=== PATIENT | female | born 1940 | race Caucasian/White ===

== ENCOUNTER → 2023-09-14 09:30 | Outpatient (REF) | payer MEDICARE, OTHER, SELFPAY ==
[2023-09-14 10:19] LABS: Urine Albumin Negative (Neg - Trace); Urine Bilirubin Negative (Negative); Urine Character Clear (Clear); Urine Color Yellow; Urine Glucose Negative (Negative); Urine Ketone Negative (Negative); Urine Leukocyte Negative (Negative); Urine Nitrite Negative (Negative); Urine Occult Blood Negative (Negative); Urine Urobilinogen Negative (Neg - 1+)
== END ==
LOC: OLABN 09:30
PROVIDERS: ATTENDING PHYSICIAN Internal Medicine Geriatric Medicine
DX: R35.0 Frequency of micturition (principal)
CPT/HCPCS: 81003; 87086

== ENCOUNTER → 2023-09-21 11:06 | Outpatient (REF) | payer MEDICARE, OTHER, SELFPAY ==
[2023-09-21 12:18] LABS: Urine Albumin Negative (Neg - Trace); Urine Bilirubin Negative (Negative); Urine Character Clear (Clear); Urine Color Yellow; Urine Glucose Negative (Negative); Urine Ketone Negative (Negative); Urine Leukocyte 2+ (Negative); Urine Nitrite Negative (Negative); Urine Occult Blood Negative (Negative); Urine Urobilinogen Negative (Neg - 1+)
[2023-09-21 12:40] LABS: Urine Squamous Cell >30 /LPF (Few)
[2023-09-21 12:42] LABS: Urine Red Blood Cell 0-2 /HPF (0-2); Urine White Cell 30-40 /HPF (0-5)
[2023-09-21 12:43] LABS: Urine Bacteria Few (Negative)
== END ==
LOC: OLABN 11:06
PROVIDERS: ATTENDING PHYSICIAN Internal Medicine Geriatric Medicine
DX: R35.0 Frequency of micturition (principal)
CPT/HCPCS: 81003; 81015; 87077; 87086; 87186

== ENCOUNTER → 2023-10-08 09:32 | Outpatient (REF) | payer MEDICARE, OTHER, SELFPAY ==
[2023-10-08 12:50] LABS: Urine Albumin Negative (Neg - Trace); Urine Bilirubin Negative (Negative); Urine Character Clear (Clear); Urine Color Yellow; Urine Glucose Negative (Negative); Urine Ketone Negative (Negative); Urine Leukocyte Negative (Negative); Urine Nitrite Negative (Negative); Urine Occult Blood Negative (Negative); Urine Specific Gravity 1.015 (<1.030); Urine Urobilinogen Negative (Neg - 1+)
== END ==
LOC: OLABN 09:32
PROVIDERS: ATTENDING PHYSICIAN Internal Medicine Geriatric Medicine
DX: R30.0 Dysuria (principal)
CPT/HCPCS: 81003; 87086

== ENCOUNTER → 2023-10-10 12:16 | Outpatient (REF) | payer MEDICARE, OTHER, SELFPAY ==
[2023-10-10 13:03] LABS: % Basophils 0.9 % (0-2); % Eosinophils 3.9 % (0-6); % Immature Granulocytes 0.3 % (0-0.5); % Lymphocytes 43.2 % (20.5-51.1); % Monocytes 7.8 % (1.7-9.3); % Neutrophils 43.9 % (42.2-75.2); Absolute Eosinophils 0.1 10^3/uL (0-0.7); Absolute Lymphocytes 1.4 10^3/uL (1.2-3.4); Absolute Monocytes 0.3 10^3/uL (0.1-0.6); Absolute Neutrophils 1.5 10^3/uL (1.4-6.5); Hematocrit 34.5 % (37.0-47.0); Hemoglobin 11.3 g/dL (12.0-16.0); Mean Corp Hgb Conc. 32.8 g/dL (33.0-37.0); Mean Corpuscular Hgb 28.3 pg (27.0-31.0); Mean Corpuscular Volume 86.5 fL (81.0-99.0); Mean Platelet Volume 10.9 fL (7.4-10.4); Nucleated Red Blood Cells % 0 %; Platelet Count 143 10^3/uL (130-400); Red Blood Cell Count 3.99 10^6/uL (4.20-5.40); White Blood Cell Count 3.3 10^3/uL (4.8-10.8)
[2023-10-10 13:23] LABS: ALT (SGPT) < 10 U/L (0-35); AST (SGOT) 16 U/L (14-36); Alkaline Phosphatase 70 U/L (38-126); Blood Urea Nitrogen 16 mg/dl (7-17); Calcium 9.6 mg/dl (8.4-10.2); Carbon Dioxide 28 mmol/L (22-30); Chloride 102 mmol/L (98-107); Glucose 88 mg/dl (70-99); Sodium 138 mmol/L (135-145); Total Bilirubin 0.4 mg/dl (0.2-1.3); Total Protein 6.3 g/dl (6.3-8.2); eGFR > 60.00
== END ==
LOC: OLABN 12:16
PROVIDERS: ATTENDING PHYSICIAN Internal Medicine Geriatric Medicine
DX: F06.2 Psychotic disorder with delusions due to known physiological condition (principal); F41.9 Anxiety disorder, unspecified
CPT/HCPCS: 80053; 85025

== ENCOUNTER → 2023-10-11 09:35 | Outpatient (REF) | payer MEDICARE, OTHER, SELFPAY ==
[2023-10-11 11:13] LABS: Urine Albumin Negative (Neg - Trace); Urine Bilirubin Negative (Negative); Urine Character Clear (Clear); Urine Color Yellow; Urine Glucose Negative (Negative); Urine Ketone Negative (Negative); Urine Leukocyte Negative (Negative); Urine Nitrite Negative (Negative); Urine Occult Blood Negative (Negative); Urine Urobilinogen Negative (Neg - 1+)
== END ==
LOC: OLABN 09:35
PROVIDERS: ATTENDING PHYSICIAN Internal Medicine Geriatric Medicine
DX: R30.9 Painful micturition, unspecified (principal); R35.0 Frequency of micturition
CPT/HCPCS: 81003; 87086

== ENCOUNTER → 2023-10-29 14:32 | Outpatient (REF) | payer MEDICARE, OTHER, SELFPAY ==
[2023-10-29 15:07] LABS: Urine Albumin Negative (Neg - Trace); Urine Bilirubin Negative (Negative); Urine Character Clear (Clear); Urine Color Yellow; Urine Glucose Negative (Negative); Urine Ketone Trace (Negative); Urine Leukocyte Negative (Negative); Urine Nitrite Negative (Negative); Urine Occult Blood Negative (Negative); Urine Specific Gravity 1.015 (<1.030); Urine Urobilinogen Negative (Neg - 1+)
== END ==
LOC: OLAB 14:32
PROVIDERS: FAMILY PHYSICIAN Internal Medicine Geriatric Medicine
DX: R35.0 Frequency of micturition (principal)
CPT/HCPCS: 81003; 87086

== ENCOUNTER → 2023-11-28 09:53 | Outpatient (REF) | payer MEDICARE, OTHER, SELFPAY ==
[2023-11-28 10:29] LABS: Blood Urea Nitrogen 20 mg/dl (7-17); Calcium 9.4 mg/dl (8.4-10.2); Carbon Dioxide 26 mmol/L (22-30); Chloride 105 mmol/L (98-107); Glucose 102 mg/dl (70-99); Potassium 4.1 mmol/L (3.5-5.1); Sodium 139 mmol/L (135-145); eGFR > 60.00
[2023-11-28 10:45] LABS: Free T4 0.97 ng/dl (0.78-2.19); Vitamin D, 25-OH*** 37.2 ng/mL (30-80)
[2023-11-28 11:18] LABS: Vitamin B12 527 pg/ml (239-931)
[2023-11-28 11:24] LABS: TSH 3.36 uIU/ml (0.47-4.68)
[2023-11-28 12:11] LABS: Glycohemoglobin (HgbA1c) 6.9 % (4.0-5.6)
== END ==
LOC: OLABN 09:53
PROVIDERS: ATTENDING PHYSICIAN Internal Medicine Geriatric Medicine
DX: E03.9 Hypothyroidism, unspecified (principal); E78.5 Hyperlipidemia, unspecified; E53.8 Deficiency of other specified B group vitamins; E55.9 Vitamin D deficiency, unspecified; E11.9 Type 2 diabetes mellitus without complications
CPT/HCPCS: 36415; 80048; 82306; 82607; 83036; 84439; 84443

== ENCOUNTER → 2024-01-17 16:41 | Outpatient (REF) | payer MEDICARE, OTHER, SELFPAY ==
[2024-01-17 18:33] LABS: Urine Albumin Negative (Neg - Trace); Urine Bilirubin Negative (Negative); Urine Character Clear (Clear); Urine Color Yellow; Urine Glucose Negative (Negative); Urine Ketone Trace (Negative); Urine Leukocyte Negative (Negative); Urine Nitrite Negative (Negative); Urine Occult Blood Negative (Negative); Urine Urobilinogen Negative (Neg - 1+)
== END ==
LOC: OLABN 16:41
PROVIDERS: ATTENDING PHYSICIAN Internal Medicine Geriatric Medicine
DX: Z87.440 Personal history of urinary (tract) infections (principal); N39.0 Urinary tract infection, site not specified
CPT/HCPCS: 81003; 87077; 87086; 87186

== ENCOUNTER → 2024-02-27 12:35 | Outpatient (REF) | payer MEDICARE, OTHER, SELFPAY ==
[2024-02-27 13:33] LABS: Blood Urea Nitrogen 13 mg/dl (7-17); Calcium 9.3 mg/dl (8.4-10.2); Carbon Dioxide 27 mmol/L (22-30); Chloride 106 mmol/L (98-107); Glucose 95 mg/dl (70-99); Potassium 4.2 mmol/L (3.5-5.1); Sodium 136 mmol/L (135-145); eGFR > 60.00
[2024-02-27 13:53] LABS: Glycohemoglobin (HgbA1c) 6.7 % (4.0-5.6)
== END ==
LOC: OLABN 12:35
PROVIDERS: ATTENDING PHYSICIAN Internal Medicine Geriatric Medicine
DX: E55.9 Vitamin D deficiency, unspecified (principal); E11.9 Type 2 diabetes mellitus without complications; E78.5 Hyperlipidemia, unspecified; E53.8 Deficiency of other specified B group vitamins; E03.9 Hypothyroidism, unspecified; Z79.84 Long term (current) use of oral hypoglycemic drugs
CPT/HCPCS: 36415; 80048; 83036

== ENCOUNTER → 2024-04-11 15:30 | Outpatient (REF) | payer MEDICARE, OTHER, SELFPAY ==
[2024-04-11 17:38] LABS: Urine Albumin Negative (Neg - Trace); Urine Bilirubin Negative (Negative); Urine Character Clear (Clear); Urine Color Yellow; Urine Glucose Negative (Negative); Urine Ketone Negative (Negative); Urine Leukocyte Negative (Negative); Urine Nitrite Negative (Negative); Urine Occult Blood Negative (Negative); Urine Urobilinogen Negative (Neg - 1+)
== END ==
LOC: OLABN 15:30
PROVIDERS: ATTENDING PHYSICIAN Internal Medicine Geriatric Medicine
DX: R35.0 Frequency of micturition (principal)
CPT/HCPCS: 81003; 87077; 87086; 87186

== ENCOUNTER → 2024-04-17 18:42 | Outpatient (REF) | payer MEDICARE, OTHER, SELFPAY | LOC: OLABN 18:42 | PROVIDERS: ATTENDING PHYSICIAN Internal Medicine Geriatric Medicine | DX: C16.9 Malignant neoplasm of stomach, unspecified (principal); Z85.038 Personal history of other malignant neoplasm of large intestine; C16.8 Malignant neoplasm of overlapping sites of stomach | CPT/HCPCS: 82272 ==

== ENCOUNTER → 2024-04-19 10:12 | Outpatient (REF) | payer MEDICARE, OTHER, SELFPAY | LOC: OLABN 10:12 | PROVIDERS: ATTENDING PHYSICIAN Internal Medicine Geriatric Medicine | DX: C16.9 Malignant neoplasm of stomach, unspecified (principal); Z12.11 Encounter for screening for malignant neoplasm of colon; Z85.038 Personal history of other malignant neoplasm of large intestine | CPT/HCPCS: 82272 ==

== ENCOUNTER → 2024-04-23 16:00 | Outpatient (REF) | payer MEDICARE, OTHER, SELFPAY | LOC: OLABN 16:00 | PROVIDERS: ATTENDING PHYSICIAN Internal Medicine Geriatric Medicine | DX: Z12.11 Encounter for screening for malignant neoplasm of colon (principal) | CPT/HCPCS: 82270 ==

== ENCOUNTER 2024-05-21 07:49 | Emergency (ER) | payer MEDICARE, OTHER, SELFPAY ==
[2024-05-21] VITALS (9 sets, daily range): BP systolic 119–145; BP diastolic 61–89
[2024-05-21 08:20] LABS: % Basophils 0.7 % (0-2); % Eosinophils 4.5 % (0-6); % Immature Granulocytes 0.5 % (0-0.5); % Lymphocytes 27.9 % (20.5-51.1); % Monocytes 9.8 % (1.7-9.3); % Neutrophils 56.6 % (42.2-75.2); Absolute Eosinophils 0.2 10^3/uL (0-0.7); Absolute Lymphocytes 1.2 10^3/uL (1.2-3.4); Absolute Monocytes 0.4 10^3/uL (0.1-0.6); Absolute Neutrophils 2.5 10^3/uL (1.4-6.5); Hematocrit 33.8 % (37.0-47.0); Hemoglobin 11.1 g/dL (12.0-16.0); Mean Corp Hgb Conc. 32.8 g/dL (33.0-37.0); Mean Corpuscular Hgb 28.5 pg (27.0-31.0); Mean Corpuscular Volume 86.7 fL (81.0-99.0); Mean Platelet Volume 9.7 fL (7.4-10.4); Nucleated Red Blood Cells % 0 %; Platelet Count 172 10^3/uL (130-400); Red Cell Dist. Width 14.5 % (11.5-14.5); White Blood Cell Count 4.4 10^3/uL (4.8-10.8)
--- NOTE | 2024-05-21 08:26 | ED.GENMED ---
History of Present Illness
General
Chief Complaint: Chest Pain
Source: patient, records, long-term records, previous radiology exam and previous hospital records
Exam Limitations: none
Time Seen by Provider: 05/21/24 08:08
Nursing documentation reviewed up to this point in time: agreed with
History of Present Illness
History of Present Illness:
83-year-old female chronic pain syndrome on narcotic patches presents with chest pain back pain abdominal pain into her leg associated with trouble urinating sharp pain in her back,
No fevers no vomiting, she is unsure when the pain started,
Past History
Past History
ED Past Medical History: Arrthythmia (afib), CVA, GERD, HTN, Hypercholesterolemia, NIDDM, Hypothyroidism, Psychiatric (depression, anxiety) and Other (dizziness, constipation)
Patient has exhibited threatening behavior?: No
PSI?: No
Social History
Tobacco: Non-smoker
Alcohol: None
Drug: None
Living: long-term
Employment: Not employed
Review of Systems
Review of Systems
All Other Systems: Not applicable
Constitutional: Denies fever or fatigue
Respiratory: Denies trouble breathing
Cardiac: Reports chest pain
ABD/GI: Reports abdominal pain
: Reports frequency and urgency; Denies incontinence
Musculoskeletal: Reports joint pain and muscle stiffness
Phy Exam
Physical Exam
Physical Exam:
Physical Exam
General: Chronically ill female nontoxic
Neck: No jaundice
Heart: Irregular
Lungs: no acute respiratory distress. clear bilaterally
Abdomen: Soft nontender
Neuro: alert and oriented. no focal neurological deficits
Skin: no rash
Psychiatric: cooperative
Extremities: no edema.
Scores
Heart Score for Chest Pain Patients
STEMI patient?: No
History: Slightly or Non-Suspicious
ECG: Nonspecific Repolarization
Age: >/= 65 years
Risk Factors: 1 or 2 Risk Factors
Troponin: </= Normal Limit
Heart Score for Chest Pain Patients: 4
Heart Score Risk: 20.3% MACE over next 6 weeks
Course
Orders/Labs/Results
Orders:
Orders
05/21/24 07:52
Electrocardiogram (*1) Urgent
Reason for Study: Chest Pain
EKG- Treatment ONCE
05/21/24 08:05
Basic Metabolic Panel Urgent
Complete Blood Count/With Diff Urgent
Lipase Urgent
Comment: ADD ON
Troponin I Urgent
05/21/24 08:22
CT Abd/pel Without Iv Or Oral Urgent
Comment:
Reason For Exam: left flank pain, stones
Straight cath- Treatment ONCE
05/21/24 08:44
Urinalysis Reflex To Culture Urgent
Date Specimen was Collected: 05/21/24
Time Specimen was Collected: 08:42
05/21/24 08:45
Add On- LAB Urgent
Tests Added?: lipase
05/21/24 09:56
CR Chest - 2 Views Urgent
Comment:
Reason For Exam: cp
Abnormal Lab Results
05/21/24
08:05
WBC 4.4 L 10^3/uL
(4.8-10.8)
RBC 3.90 L 10^6/uL
(4.20-5.40)
Hgb 11.1 L g/dL
(12.0-16.0)
Hct 33.8 L %
(37.0-47.0)
MCHC 32.8 L g/dL
(33.0-37.0)
Monocytes % 9.8 H %
(1.7-9.3)
BUN 19 H mg/dl
(7-17)
Glucose 115 H mg/dl
(70-99)
05/21/24 08:05
05/21/24 08:05
Vital Signs
Initial and Last Documented VS:
Initial Vital Signs
BP Pulse Ox
119/69 97
05/21/24 07:52 05/21/24 07:52
Last Documented Vital Signs
Temp Pulse Resp BP Pulse Ox
98.4 F 66 20 137/65 96
05/21/24 07:53 05/21/24 10:30 05/21/24 10:30 05/21/24 10:57 05/21/24 10:57
MDM/Problems Addressed
Differential Diagnosis Includes:
Chronic pain renal colic UTI doubt PE as she is anticoagulated doubt ACS
Chronic conditions affecting care: HTN, Neurological disorder, Kidney disease and Other (Chronic pain)
Acute Exacerbation and/or Progression of Chronic Illness: HTN, Neurological disorder, Kidney disease and Other (Chronic pain)
*Radiology
Radiology exam reviewed: radiology read reviewed
*Pulse Oximetry
Patient hypoxic: no
*EKG
Interpreted by ED Provider?: Yes
Interpretation: abnormal
Comparison EKG: changes noted
Heart Rate: 78
Rate: normal
Rhythm: a-fib
Ischemia: non-specific ST changes
*[employer]ishing [employer]visor Interpretation
Rate: normal
Interpretation: normal
Heart Rate: 75
Rhythm: a-fib
*Critical Care Note
Total Time (30-74mins, 75-104mins- exclusive of procedures): Not Applicable
Data Reviewed
Review of Other/Old Records Reveals: Labs, Records and Radiology Studies
Source: patient
Update Note
Update Note:
Update, symptoms appear chronic, EKG noted, possibly A-fib she is anticoagulated already, does have pain into her flank and dysuria prior records reviewed has had a kidney stone will ask nurse to get a straight cath UA chest stone search CT
11 AM chest x-ray report noted CT report noted labs are noted troponin noted stable from prior levels, urine noted
ED Attending Note
-
Portions of this chart may have been created with voice recognition software.� Occasional wrong word or��sound alike� substitutions may have occurred due to the inherent limitations of voice recognition software.
Discharge Plan
Departure
Patient Disposition: Home (Routine Discharge)
Date of Disposition: 05/21/24
Time of Disposition: 11:03
Patient with high blood pressure during this ER visit?: No
Condition: Good
Discharge Problem:
Pain
Instructions: Chest Pain PCP Follow Up
Prescriptions:
No Action
losartan 25 MG tablet
25 mg PO DAILY
tramadol 50 MG tablet
25 mg PO Q12H PRN (Reason: moderate pain)
Rx Instructions:
05/21/24: filled #30 on 10/16/23 at [facility]
acetaminophen 325 mg Tablet
325 mg PO DAILY PRN (Reason: mild pain/fever>100.4)
Rx Instructions:
not to exceed 3000mg/24h
lidocaine 4 % adhesive patch,medicated
1 patch TOPICAL SUMOTUTHFR
Rx Instructions:
APPLY 11-7 SHIFT; REMOVE 3-11 SHIFT
sennosides-docusate sodium [Senna-S] 8.6-50 mg Tablet
2 tab PO BID
levothyroxine 88 mcg Tablet
88 mcg PO DAILY@0630
cyanocobalamin (vitamin B-12) [Vitamin B-12] 500 mcg Tablet
250 mcg PO MOWEFR
diltiazem HCl 120 mg capsule,extended release 24 hr
120 mg PO DAILY
metformin 500 mg tablet extended release 24 hr
500 mg PO QPM
duloxetine 30 mg Capsule,Delayed Release(Dr/Ec)
30 mg PO DAILY
buprenorphine 5 mcg/hour Patch Weekly
1 patch TRANSDERMAL TH
Patient Comments:
05/21/24: filled #4 patches/28 days on 05/17/24 - [facility]
apixaban 2.5 mg Tablet
2.5 mg PO BID
naloxone [Narcan] 4 mg/actuation [place],Non-Aerosol
4 mg INTRANASAL PRN PRN (Reason: opioid overdose)
Rx Instructions:
may repeat dose x1 in 2-3 minutes if pt does not respond or until EMS arrives
acetaminophen [Tylenol 8 Hour] 650 mg Tablet Extended Release
1,300 mg PO BID
methenamine hippurate 1 gram Tablet
1 g PO TUFR
magnesium hydroxide [Milk of Magnesia] 400 mg/5 mL Suspension
30 ml PO HSPRN PRN (Reason: constipation)
bisacodyl 10 mg Suppository
10 mg [place] DAILY PRN (Reason: q 3 days when no BM and MOM/lactulose ineffective)
estradiol 0.01 % (0.1 mg/gram) Cream
1 g VAGINAL MOTH
Preparation H Cream
1 applic topical TIDPRN PRN (Reason: hemorrhoids)
Rx Instructions:
apply topically to external hemorrhoids after each BM
cranberry extract [Ellura] 200 mg Capsule
200 mg PO QPM
cholecalciferol (vitamin D3) 1,250 mcg (50,000 unit) Tablet
1,250 mcg PO QMONTH
Rx Instructions:
05/21/24: Monday of every month.
lidocaine 4 % Adhesive Patch,Medicated
1 patch TOPICAL WESA
Rx Instructions:
APPLY 7-3 SHIFT; REMOVE 3-11 SHIFT
atorvastatin 10 mg tablet
10 mg PO HS
gabapentin 100 mg capsule
100 mg PO DAILY
melatonin 3 mg Tablet
3 mg PO HS
omeprazole 10 mg capsule,delayed release(DR/EC)
10 mg PO DAILY
docusate sodium 100 mg Capsule
200 mg PO QPM
gabapentin 300 mg capsule
300 mg PO QPM
quetiapine 25 mg tablet
12.5 mg PO HS
lidocaine 4 % Adhesive Patch,Medicated
1 patch TOPICAL DAILY PRN (Reason: right lower back)
Rx Instructions:
on in AM; remove in PM
witch ekaterina 50 % Pads, Medicated
1 pad TOPICAL BID PRN (Reason: hemorrhoidal pain)
Rx Instructions:
apply topically to rectum
glucagon HCl [Glucagon (HCl) Emergency Kit] 1 mg Recon Soln
1 mg IM TIDPRN PRN (Reason: symptomatic hypoglycemia)
Rx Instructions:
Inject 1mg IM prn symptomatic hypoglycemia. may repeat in 15min x 2 doses if still symptomatic.
Referrals:
UNKNOWN,NO INTERVIEW [Family Provider] -
Denilson Weems MD [Active] - Next open appointment
Interventions
Interventions:
*Risk Screen - Suicide Last Done: 05/21/24 07:53
*General Assessment Last Done: 05/21/24 07:53
*Neglect/Abuse Screening Last Done: 05/21/24 07:53
*ED COVID-19 Vaccine History Last Done: 05/21/24 07:53
ED- Cardiac Assessment Last Done: 05/21/24 08:03
Discharge Date and Time
Print Language: SAMI
[2024-05-21 08:42] LABS: Blood Urea Nitrogen 19 mg/dl (7-17); Calcium 9.4 mg/dl (8.4-10.2); Carbon Dioxide 26 mmol/L (22-30); Chloride 104 mmol/L (98-107); Glucose 115 mg/dl (70-99); Sodium 140 mmol/L (135-145); eGFR > 60.00
[2024-05-21 08:56] LABS: Urine Albumin Negative (Neg - Trace); Urine Bilirubin Negative (Negative); Urine Character Clear (Clear); Urine Color Yellow; Urine Glucose Negative (Negative); Urine Ketone Negative (Negative); Urine Leukocyte Negative (Negative); Urine Nitrite Negative (Negative); Urine Occult Blood Negative (Negative); Urine Specific Gravity 1.015 (<1.030); Urine Urobilinogen Negative (Neg - 1+)
[2024-05-21 09:06] LABS: Lipase 47 U/L (23-300)
== END 2024-05-21 13:45 | disposition home or self-care (01) ==
LOC: EMR 07:49
PROVIDERS: EMERGENCY PHYSICIAN Emergency Medicine
DX: R07.89 Other chest pain (principal); M54.9 Dorsalgia, unspecified; R10.9 Unspecified abdominal pain
CPT/HCPCS: 99285; 71046; 74176; 80048; 81003; 83690; 84484; 85025; 93005

== ENCOUNTER → 2024-05-28 10:28 | Outpatient (REF) | payer MEDICARE, OTHER, SELFPAY ==
[2024-05-28 11:18] LABS: Glycohemoglobin (HgbA1c) 6.7 % (4.0-5.6)
[2024-05-28 11:22] LABS: Free T4 1.11 ng/dl (0.78-2.19)
[2024-05-28 11:36] LABS: TSH 8.73 uIU/ml (0.47-4.68)
[2024-05-28 11:53] LABS: Calcium 9.3 mg/dl (8.4-10.2); Chloride 104 mmol/L (98-107); Glucose 100 mg/dl (70-99); HDL Cholesterol 46 mg/dl; Potassium 4.1 mmol/L (3.5-5.1); Sodium 140 mmol/L (135-145); Triglyceride 155 mg/dl (10-149); Very Low Density Lipoprotein 31 mg/dl (0-30)
[2024-05-28 12:13] LABS: Blood Urea Nitrogen 15 mg/dl (7-17); Carbon Dioxide 22 mmol/L (22-30); LDL Cholesterol, Calculated 100 mg/dl; Total Cholesterol 177 mg/dl (50-199); eGFR > 60.00
== END ==
LOC: OLABN 10:28
PROVIDERS: ATTENDING PHYSICIAN Internal Medicine Geriatric Medicine
DX: E78.5 Hyperlipidemia, unspecified (principal); Z79.84 Long term (current) use of oral hypoglycemic drugs; E03.9 Hypothyroidism, unspecified
CPT/HCPCS: 36415; 80048; 80061; 83036; 84439; 84443

== ENCOUNTER → 2024-05-30 10:20 | Outpatient (REF) | payer MEDICARE, OTHER, SELFPAY ==
[2024-05-30 12:05] LABS: TSH 7.07 uIU/ml (0.47-4.68)
== END ==
LOC: OLABN 10:20
PROVIDERS: ATTENDING PHYSICIAN Internal Medicine Geriatric Medicine
DX: E03.9 Hypothyroidism, unspecified (principal)
CPT/HCPCS: 36415; 84443

== ENCOUNTER → 2024-07-05 16:42 | Outpatient (REF) | payer MEDICARE, OTHER, SELFPAY ==
[2024-07-05 17:44] LABS: Urine Albumin Negative (Neg - Trace); Urine Bilirubin Negative (Negative); Urine Character Clear (Clear); Urine Color Yellow; Urine Glucose Negative (Negative); Urine Ketone Negative (Negative); Urine Leukocyte Negative (Negative); Urine Nitrite Negative (Negative); Urine Occult Blood Negative (Negative); Urine Specific Gravity 1.015 (<1.030); Urine Urobilinogen Negative (Neg - 1+)
== END ==
LOC: OLABN 16:42
PROVIDERS: ATTENDING PHYSICIAN Internal Medicine Geriatric Medicine
DX: R35.0 Frequency of micturition (principal)
CPT/HCPCS: 81003; 87086

== ENCOUNTER → 2024-07-12 23:40 | Outpatient (REF) | payer MEDICARE, OTHER, SELFPAY ==
[2024-07-13 08:48] LABS: Urine Albumin Trace (Neg - Trace); Urine Bilirubin Negative (Negative); Urine Character Clear (Clear); Urine Color Yellow; Urine Glucose Negative (Negative); Urine Ketone Trace (Negative); Urine Leukocyte Negative (Negative); Urine Nitrite Negative (Negative); Urine Occult Blood Negative (Negative); Urine Specific Gravity 1.025 (<1.030); Urine Urobilinogen Negative (Neg - 1+)
== END ==
LOC: OLABN 23:40
PROVIDERS: ATTENDING PHYSICIAN Internal Medicine Geriatric Medicine
DX: R35.0 Frequency of micturition (principal)
CPT/HCPCS: 81003; 87086

== ENCOUNTER → 2024-08-27 08:37 | Outpatient (REF) | payer MEDICARE, OTHER, SELFPAY ==
[2024-08-27 10:34] LABS: Glycohemoglobin (HgbA1c) 6.7 % (4.0-5.6)
[2024-08-27 10:55] LABS: ALT (SGPT) 10 U/L (0-35); AST (SGOT) 19 U/L (14-36); Albumin 3.5 g/dl (3.5-5.0); Alkaline Phosphatase 59 U/L (38-126); Blood Urea Nitrogen 20 mg/dl (7-17); Calcium 9.1 mg/dl (8.4-10.2); Carbon Dioxide 26 mmol/L (22-30); Chloride 103 mmol/L (98-107); Direct Bilirubin 0.2 mg/dl (0.0-0.4); Glucose 109 mg/dl (70-99); Potassium 4.4 mmol/L (3.5-5.1); Sodium 137 mmol/L (135-145); Total Bilirubin 0.4 mg/dl (0.2-1.3); Total Cholesterol 157 mg/dl (50-199); Triglyceride 164 mg/dl (10-149); Very Low Density Lipoprotein 32 mg/dl (0-30); eGFR > 60.00
[2024-08-27 15:32] LABS: HDL Cholesterol 48 mg/dl; LDL Cholesterol, Calculated 77 mg/dl
== END ==
LOC: OLABN 08:37
PROVIDERS: ATTENDING PHYSICIAN Internal Medicine Geriatric Medicine
DX: E78.5 Hyperlipidemia, unspecified (principal); Z79.84 Long term (current) use of oral hypoglycemic drugs
CPT/HCPCS: 36415; 80053; 80061; 82248; 83036

== ENCOUNTER → 2024-08-28 10:55 | Outpatient (REF) | payer MEDICARE, OTHER, SELFPAY ==
[2024-08-28 12:48] LABS: TSH 3.57 uIU/ml (0.47-4.68)
== END ==
LOC: OLABN 10:55
PROVIDERS: ATTENDING PHYSICIAN Internal Medicine Geriatric Medicine
DX: E03.9 Hypothyroidism, unspecified (principal)
CPT/HCPCS: 36415; 84443

== ENCOUNTER → 2024-10-04 21:00 | Outpatient (REF) | payer MEDICARE, OTHER, SELFPAY ==
[2024-10-05 10:11] LABS: Urine Albumin 2+ (Neg - Trace); Urine Bilirubin Negative (Negative); Urine Character Clear (Clear); Urine Color Yellow; Urine Glucose Negative (Negative); Urine Ketone Negative (Negative); Urine Leukocyte Negative (Negative); Urine Nitrite Negative (Negative); Urine Occult Blood Negative (Negative); Urine Urobilinogen Negative (Neg - 1+)
[2024-10-05 10:27] LABS: Urine Bacteria Few (Negative); Urine Red Blood Cell 0-2 /HPF (0-2); Urine Squamous Cell 16-20 /LPF (Few)
== END ==
LOC: OLABN 21:00
PROVIDERS: ATTENDING PHYSICIAN Internal Medicine Geriatric Medicine
DX: R30.9 Painful micturition, unspecified (principal); R35.0 Frequency of micturition; N39.0 Urinary tract infection, site not specified
CPT/HCPCS: 81003; 81015; 87086

== ENCOUNTER → 2024-10-15 11:52 | Outpatient (REF) | payer MEDICARE, OTHER, SELFPAY ==
[2024-10-15 12:23] LABS: Hematocrit 39.7 % (37.0-47.0); Hemoglobin 12.7 g/dL (12.0-16.0); Mean Corpuscular Hgb 29.5 pg (27.0-31.0); Mean Corpuscular Volume 92.1 fL (81.0-99.0); Mean Platelet Volume 10.7 fL (7.4-10.4); Platelet Count 149 10^3/uL (130-400); Red Blood Cell Count 4.31 10^6/uL (4.20-5.40); Red Cell Dist. Width 14.6 % (11.5-14.5)
[2024-10-15 12:33] LABS: ALT (SGPT) 12 U/L (0-35); AST (SGOT) 18 U/L (14-36); Albumin 3.8 g/dl (3.5-5.0); Alkaline Phosphatase 61 U/L (38-126); Blood Urea Nitrogen 24 mg/dl (7-17); Calcium 9.5 mg/dl (8.4-10.2); Carbon Dioxide 27 mmol/L (22-30); Chloride 107 mmol/L (98-107); Glucose 103 mg/dl (70-99); HDL Cholesterol 49 mg/dl; LDL Cholesterol, Calculated 87 mg/dl; Potassium 4.3 mmol/L (3.5-5.1); Sodium 141 mmol/L (135-145); Total Bilirubin 0.5 mg/dl (0.2-1.3); Total Cholesterol 172 mg/dl (50-199); Total Protein 6.4 g/dl (6.3-8.2); Triglyceride 180 mg/dl (10-149); Very Low Density Lipoprotein 36 mg/dl (0-30); eGFR > 60.00
[2024-10-16 10:13] LABS: Glycohemoglobin (HgbA1c) 6.7 % (4.0-5.6)
== END ==
LOC: OLABN 11:52
PROVIDERS: ATTENDING PHYSICIAN Internal Medicine Geriatric Medicine
DX: I10 Essential (primary) hypertension (principal); Z79.84 Long term (current) use of oral hypoglycemic drugs
CPT/HCPCS: 36415; 80053; 80061; 83036; 85027

== ENCOUNTER → 2024-11-04 11:18 | Outpatient (REF) | payer MEDICARE, OTHER, SELFPAY ==
[2024-11-04 12:30] LABS: Procalcitonin < 0.05 ng/ml (0.0-0.25)
[2024-11-04 12:31] LABS: % Basophils 0.8 % (0-2); % Immature Granulocytes 0.3 % (0-0.5); % Lymphocytes 31.4 % (20.5-51.1); % Monocytes 8.2 % (1.7-9.3); % Neutrophils 56.3 % (42.2-75.2); Absolute Basophils 0.1 10^3/uL (0-0.2); Absolute Eosinophils 0.2 10^3/uL (0-0.7); Absolute Lymphocytes 1.9 10^3/uL (1.2-3.4); Absolute Monocytes 0.5 10^3/uL (0.1-0.6); Absolute Neutrophils 3.4 10^3/uL (1.4-6.5); Hematocrit 39.6 % (37.0-47.0); Hemoglobin 12.8 g/dL (12.0-16.0); Mean Corp Hgb Conc. 32.3 g/dL (33.0-37.0); Mean Corpuscular Hgb 30.5 pg (27.0-31.0); Mean Corpuscular Volume 94.5 fL (81.0-99.0); Mean Platelet Volume 10.2 fL (7.4-10.4); Nucleated Red Blood Cells % 0 %; Platelet Count 156 10^3/uL (130-400); Red Blood Cell Count 4.19 10^6/uL (4.20-5.40); Red Cell Dist. Width 14.5 % (11.5-14.5); White Blood Cell Count 6.1 10^3/uL (4.8-10.8)
[2024-11-04 12:44] LABS: ALT (SGPT) 11 U/L (0-35); AST (SGOT) 18 U/L (14-36); Alkaline Phosphatase 65 U/L (38-126); Blood Urea Nitrogen 20 mg/dl (7-17); Calcium 9.4 mg/dl (8.4-10.2); Carbon Dioxide 23 mmol/L (22-30); Chloride 108 mmol/L (98-107); Glucose 104 mg/dl (70-99); Sodium 142 mmol/L (135-145); Total Bilirubin 0.6 mg/dl (0.2-1.3); Total Protein 6.6 g/dl (6.3-8.2); eGFR > 60.00
[2024-11-04 12:51] LABS: NT-proBNP 1760 pg/ml
== END ==
LOC: OLABN 11:18
PROVIDERS: ATTENDING PHYSICIAN Internal Medicine Geriatric Medicine
DX: R06.89 Other abnormalities of breathing (principal); R09.89 Other specified symptoms and signs involving the circulatory and respiratory systems
CPT/HCPCS: 36415; 80053; 83880; 84145; 85025

== ENCOUNTER → 2024-12-30 10:15 | Outpatient (REF) | payer MEDICARE, OTHER, SELFPAY | LOC: RST 10:15 | PROVIDERS: ATTENDING PHYSICIAN Internal Medicine Geriatric Medicine | DX: R13.13 Dysphagia, pharyngeal phase (principal); R13.10 Dysphagia, unspecified; T17.908A Unspecified foreign body in respiratory tract, part unspecified causing other injury, initial encounter | CPT/HCPCS: 74230; 92611 ==

== ENCOUNTER → 2025-01-29 12:40 | Outpatient (REF) | payer MEDICARE, OTHER, SELFPAY ==
[2025-01-30 14:22] LABS: Urine Character Slightly Cloudy (Clear)
[2025-01-30 14:35] LABS: Urine Squamous Cell 26-30 /LPF (Few); Urine White Cell 0-2 /HPF (0-5)
== END ==
LOC: OLABN 12:40
PROVIDERS: ATTENDING PHYSICIAN Internal Medicine Geriatric Medicine
DX: R35.0 Frequency of micturition (principal)
CPT/HCPCS: 81003; 81015; 87086

== ENCOUNTER → 2025-01-31 22:00 | Outpatient (REF) | payer MEDICARE, OTHER, SELFPAY ==
[2025-02-01 09:59] LABS: Urine Character Clear (Clear)
[2025-02-01 10:20] LABS: Urine Red Blood Cell 0-2 /HPF (0-2)
== END ==
LOC: OLABN 22:00
PROVIDERS: ATTENDING PHYSICIAN Internal Medicine Geriatric Medicine
DX: R35.0 Frequency of micturition (principal)
CPT/HCPCS: 81003; 81015; 87086

== ENCOUNTER → 2025-02-25 10:59 | Outpatient (REF) | payer MEDICARE, OTHER, SELFPAY ==
[2025-02-25 12:05] LABS: Blood Urea Nitrogen 10 mg/dl (7-17); Calcium 9.1 mg/dl (8.4-10.2); Carbon Dioxide 26 mmol/L (22-30); Chloride 107 mmol/L (98-107); Glucose 86 mg/dl (70-99); Potassium 4.3 mmol/L (3.5-5.1); Sodium 140 mmol/L (135-145); eGFR > 60.00
[2025-02-25 12:53] LABS: Vitamin B12 696 pg/ml (239-931)
[2025-02-25 14:21] LABS: Glycohemoglobin (HgbA1c) 6.4 % (4.0-5.6)
== END ==
LOC: OLABN 10:59
PROVIDERS: ATTENDING PHYSICIAN Internal Medicine Geriatric Medicine
DX: D51.9 Vitamin B12 deficiency anemia, unspecified (principal); Z79.84 Long term (current) use of oral hypoglycemic drugs; E11.9 Type 2 diabetes mellitus without complications
CPT/HCPCS: 36415; 80048; 82607; 83036

== ENCOUNTER → 2025-03-14 18:30 | Outpatient (REF) | payer MEDICARE, OTHER, SELFPAY ==
[2025-03-15 13:05] LABS: Urine Character Clear (Clear)
[2025-03-15 13:20] LABS: Urine Red Blood Cell 0-2 /HPF (0-2); Urine Squamous Cell >30 /LPF (Few); Urine White Cell 0-2 /HPF (0-5)
== END ==
LOC: OLABN 18:30
PROVIDERS: ATTENDING PHYSICIAN Internal Medicine Geriatric Medicine
DX: R53.1 Weakness (principal)
CPT/HCPCS: 81003; 81015; 87086

== ENCOUNTER → 2025-03-18 11:13 | Outpatient (REF) | payer MEDICARE, OTHER, SELFPAY ==
[2025-03-18 11:32] LABS: Urine Character Clear (Clear)
[2025-03-18 11:38] LABS: Urine Red Blood Cell 0-2 /HPF (0-2); Urine White Cell 0-2 /HPF (0-5)
== END ==
LOC: OLABN 11:13
PROVIDERS: ATTENDING PHYSICIAN Internal Medicine Geriatric Medicine
DX: R30.0 Dysuria (principal)
CPT/HCPCS: 36415; 81003; 81015; 87086

== ENCOUNTER 2025-04-30 08:32 | Emergency (ER) | payer MEDICARE, OTHER, SELFPAY ==
[2025-04-30] VITALS (7 sets, daily range): BP systolic 118–136; BP diastolic 67–92
--- NOTE | 2025-04-30 08:52 | ED.GENMED ---
History of Present Illness
General
Chief Complaint: Chest Pain
Time Seen by Provider: 04/30/25 08:37
History of Present Illness
History of Present Illness:
84-year-old female with history of dementia presents to the emergency department ostensibly for chest pain but also reports pain to numerous other areas of her body. She apparently got a flu shot this morning and began complaining of chest pain at
her nursing facility. On my line of questioning she indicates pain to the head, neck, back, chest, abdomen, and left leg as well as left arm. She is noted to be moving all extremities. She is pleasantly confused at baseline
Past History
Past History
ED Past Medical History: Arrthythmia (afib), CVA, GERD, HTN, Hypercholesterolemia, NIDDM, Hypothyroidism, Psychiatric (depression, anxiety) and Other (dizziness, constipation)
Patient has exhibited threatening behavior?: No
PSI?: No
Social History
Tobacco: Non-smoker
Alcohol: None
Drug: None
Living: [facility]
Employment: Not employed
Review of Systems
Review of Systems
Allergies reviewed?: Yes
All Other Systems: ROS reviewed and negative except as documented in HPI and ROS
Phy Exam
Physical Exam
Physical Exam:
GEN: Well appearing, NAD, WDWN
HEENT: Oral mucosa moist, no scleral icterus
Cardiac: Regular rate and rhythm, no murmurs
Lung: No respiratory distress, no tachypnea, lungs clear to auscultation bilaterally
MSK: No gross deformity or injuries
Skin: Good color, no pallor or jaundice, no rashes
Neuro: Alert, answers questions, pleasantly confused, moves all extremities
Psych: Calm, cooperative
Scores
Heart Score for Chest Pain Patients
STEMI patient?: No
History: Slightly or Non-Suspicious
ECG: Normal
Age: >/= 65 years
Risk Factors: >/= 3 Risk Factors or History of CAD
Troponin: >1 - <3 x Normal Limit
Heart Score for Chest Pain Patients: 5
Heart Score Risk: 20.3% MACE over next 6 weeks
Course
Orders/Labs/Results
Orders:
Orders
04/30/25 08:34
EKG [Electrocardiogram (*1)] Urgent
Reason for Study: Chest Pain
04/30/25 08:35
EKG- Treatment ONCE
04/30/25 08:42
CR Chest Portable - 1 View Urgent
Comment:
Reason For Exam: chest pain
Reason Study Needs to be Portable: Other
04/30/25 08:50
CMP [Comprehensive Metabolic Panel] Urgent
Complete Blood Count/With Diff Urgent
Troponin I Urgent
04/30/25 10:10
EKG- Treatment ONCE
04/30/25 11:50
EKG [Electrocardiogram (*1)] Routine
Reason for Study: Chest Pain
04/30/25 12:02
Troponin I Routine
04/30/25 12:47
Acetaminophen [Tylenol] 650 mg PO NOW STA
Abnormal Lab Results
04/30/25 04/30/25
08:50 12:02
RBC 3.94 L 10^6/uL
(4.20-5.40)
MCHC 32.8 L g/dL
(33.0-37.0)
Plt Count 116 L 10^3/uL
(130-400)
MPV 10.7 H fL
(7.4-10.4)
Absolute Lymphs (auto) 1.1 L 10^3/uL
(1.2-3.4)
Monocytes % 10.4 H %
(1.7-9.3)
Troponin I 0.036 H* ng/ml 0.036 H* ng/ml
04/30/25 08:50
04/30/25 08:50
Vital Signs
Initial and Last Documented VS:
Initial Vital Signs
Temp Pulse Resp BP Pulse Ox
98.1 F 67 18 121/69 95
04/30/25 08:35 04/30/25 08:35 04/30/25 08:35 04/30/25 08:35 04/30/25 08:35
Last Documented Vital Signs
Temp Pulse Resp BP Pulse Ox
98.1 F 71 17 128/67 98
04/30/25 08:35 04/30/25 11:45 04/30/25 11:45 04/30/25 11:00 04/30/25 11:15
MDM/Problems Addressed
MDM/Problems Addressed:
Patient's symptoms are most likely inflammatory myalgia/arthralgia in the setting of recent flu vaccine, her troponin is mildly elevated however remained stable on repeat in the ED and on review of past labs she does have some degree of chronic
elevation of her troponin. She is clinically stable with otherwise normal labs. Will be discharged back to her nursing facility with recommendations for supportive care
*Pulse Oximetry
SaO2: 95
Oxygen Mode of Delivery: Room air
Patient hypoxic: no
*Critical Care Note
Total Time (30-74mins, 75-104mins- exclusive of procedures): Not Applicable
ED Attending Note
-
Portions of this chart may have been created with voice recognition software.� Occasional wrong word or��sound alike� substitutions may have occurred due to the inherent limitations of voice recognition software.
Discharge Plan
Departure
Patient Disposition: Home (Routine Discharge)
Date of Disposition: 04/30/25
Time of Disposition: 12:44
Patient with high blood pressure during this ER visit?: No
Discharge Problem:
Myalgia
Instructions: Chest Pain That Is Not Caused by the Heart (DC)
Prescriptions:
No Action
losartan 25 MG tablet
25 mg PO DAILY
acetaminophen 325 mg Tablet
325 mg PO DAILY PRN (Reason: mild pain/fever>100.4)
Rx Instructions:
not to exceed 3000mg/24h
lidocaine 4 % adhesive patch,medicated
1 patch TOPICAL DAILY
Rx Instructions:
APPLY 11-7 SHIFT; REMOVE 3-11 SHIFT
sennosides-docusate sodium [Senna-S] 8.6-50 mg Tablet
2 tab PO BID
cyanocobalamin (vitamin B-12) [Vitamin B-12] 500 mcg Tablet
250 mcg PO MO@0800
diltiazem HCl 120 mg capsule,extended release 24 hr
120 mg PO DAILY
apixaban 2.5 mg Tablet
2.5 mg PO BID
methenamine hippurate 1 gram Tablet
1 g PO BID
magnesium hydroxide [Milk of Magnesia] 400 mg/5 mL Suspension
30 ml PO HSPRN PRN (Reason: constipation)
bisacodyl 10 mg Suppository
10 mg NM DAILY PRN (Reason: q 3 days when no BM and MOM/lactulose ineffective)
estradiol 0.01 % (0.1 mg/gram) Cream
1 g VAGINAL MOTH
Preparation H Cream
1 applic topical TIDPRN PRN (Reason: hemorrhoids)
Rx Instructions:
apply topically to external hemorrhoids after each BM
cranberry extract [Ellura] 200 mg Capsule
200 mg PO QPM
cholecalciferol (vitamin D3) 1,250 mcg (50,000 unit) Tablet
1,250 mcg PO QMONTH
Rx Instructions:
05/21/24: Monday of every month.
atorvastatin 10 mg tablet
10 mg PO HS
gabapentin 100 mg capsule
100 mg PO DAILY
melatonin 3 mg Tablet
3 mg PO HS
docusate sodium 100 mg Capsule
200 mg PO QPM
quetiapine 25 mg tablet
25 mg PO HS
lidocaine 4 % Adhesive Patch,Medicated
1 patch TOPICAL DAILY PRN (Reason: right lower back)
Rx Instructions:
on in AM; remove in PM
witch ekaterina 50 % Pads, Medicated
1 pad TOPICAL BID PRN (Reason: hemorrhoidal pain)
Rx Instructions:
apply topically to rectum
glucagon HCl [Glucagon (HCl) Emergency Kit] 1 mg Recon Soln
1 mg IM TIDPRN PRN (Reason: symptomatic hypoglycemia)
Rx Instructions:
Inject 1mg IM prn symptomatic hypoglycemia. may repeat in 15min x 2 doses if still symptomatic.
metformin 500 mg tablet
500 mg PO QPM
levothyroxine 100 mcg tablet
100 mcg PO DAILY@0600
famotidine 20 mg tablet
20 mg PO DAILY
gentamicin 0.3 % drops
1 drp LEFT EYE Q6
Rx Instructions:
04/30/25; X 5 DAYS STARTED 04/26
gabapentin 100 mg capsule
100 mg PO DAILY
gabapentin 100 mg capsule
200 mg PO QPM
Rx Instructions:
04/30/25; X 14 D STARTED 04/29/25
Referrals:
Denilson Weems MD [Family Provider, Internal Medicine]
Interventions
Interventions:
*Risk Screen - Suicide Last Done: 04/30/25 08:35
*General Assessment Last Done: 04/30/25 08:35
*Neglect/Abuse Screening Last Done: 04/30/25 08:59
*ED COVID-19 Vaccine History Last Done: 04/30/25 08:59
*ED Influenza Vaccine History Last Done: 04/30/25 08:59
ED- Cardiac Assessment Last Done: 04/30/25 08:59
Discharge Date and Time
Print Language: POLISH
[2025-04-30 09:18] LABS: Hematocrit 37.2 % (37.0-47.0); Hemoglobin 12.2 g/dL (12.0-16.0); Mean Corp Hgb Conc. 32.8 g/dL (33.0-37.0); Mean Corpuscular Volume 94.4 fL (81.0-99.0); Nucleated Red Blood Cells % 0 %; Red Cell Dist. Width 13.3 % (11.5-14.5)
[2025-04-30 09:28] LABS: ALT (SGPT) < 10 U/L (0-35); AST (SGOT) 19 U/L (14-36); Albumin 3.9 g/dl (3.5-5.0); Alkaline Phosphatase 73 U/L (38-126); Blood Urea Nitrogen 15 mg/dl (7-17); Calcium 9.2 mg/dl (8.4-10.2); Carbon Dioxide 29 mmol/L (22-30); Chloride 105 mmol/L (98-107); Glucose 98 mg/dl (70-99); Potassium 4.6 mmol/L (3.5-5.1); Sodium 140 mmol/L (135-145); Total Protein 6.6 g/dl (6.3-8.2); eGFR > 60.00
[2025-04-30 09:38] LABS: Platelet Count 116 10^3/uL (130-400)
[2025-04-30 09:47] LABS: Troponin I 0.036 ng/ml
[2025-04-30 12:42] LABS: Troponin I 0.036 ng/ml
[2025-04-30] MEDS: TYLENOL 650 MG PO (13:30)
== END 2025-04-30 15:36 | disposition home or self-care (01) ==
LOC: EMR 08:32
PROVIDERS: Physician Assistant; EMERGENCY PHYSICIAN Emergency Medicine; FAMILY PHYSICIAN Internal Medicine Geriatric Medicine
DX: M79.18 Myalgia, other site (principal); R07.89 Other chest pain; E11.9 Type 2 diabetes mellitus without complications; F03.90 Unspecified dementia, unspecified severity, without behavioral disturbance, psychotic disturbance, mood disturbance, and anxiety; I48.91 Unspecified atrial fibrillation; Z86.73 Personal history of transient ischemic attack (TIA), and cerebral infarction without residual deficits
CPT/HCPCS: 99285; 71045; 80053; 84484; 85025; 93005

== ENCOUNTER → 2025-05-27 13:03 | Outpatient (REF) | payer MEDICARE, OTHER, SELFPAY ==
[2025-05-27 14:14] LABS: Glycohemoglobin (HgbA1c) 6.1 % (4.0-5.9)
[2025-05-27 14:26] LABS: Blood Urea Nitrogen 14 mg/dl (7-17); Calcium 9.1 mg/dl (8.4-10.2); Carbon Dioxide 25 mmol/L (22-30); Chloride 105 mmol/L (98-107); Glucose 97 mg/dl (70-99); Potassium 4.1 mmol/L (3.5-5.1); Sodium 135 mmol/L (135-145); eGFR > 60.00
[2025-05-27 14:27] LABS: TSH 1.22 uIU/ml (0.47-4.68)
== END ==
LOC: OLABN 13:03
PROVIDERS: ATTENDING PHYSICIAN Internal Medicine Geriatric Medicine
DX: E03.9 Hypothyroidism, unspecified (principal); Z79.84 Long term (current) use of oral hypoglycemic drugs
CPT/HCPCS: 36415; 80048; 83036; 84439; 84443